=== PATIENT | female | born 1980 | race Caucasian/White ===

== ENCOUNTER 2016-10-08 10:13 | Emergency (ER) | payer BC ==
[~2016-10-08] VITALS: Ht 170.2 cm; Wt 109.1 kg
[~2016-10-08 10:13] MED LIST: ACIPHEX20 MG PO; ADDERALL XR 10M10 MG PO; AMETHIA1 TAB PO; ASPIR-LOW81 MG PO; ASTELIN; BIRTH CONTROL PILL; CELEXA40 MG PO; CIPRO 500MG TA500 MG PO; CONCERTA PO; CONCERTA27 MG; CONCERTA54 MG PO; DARVOCET N; DIOVAN40 MG PO; DUO-KAPS1 CAP PO; ELITE MAGNESIUM1 TAB PO; EPI-PEN1 MG/ML MR; FLONASE NASAL S16 GM NS; GLUCOPHAGE1000 MG PO; HYDROXYZINE HCL25 MG PO; KETOROLAC10 MG PO; LAMICTAL200 MG PO; LORTAB 5/500 501 TAB PO; METHOTREXA2.5 MG/TAB PO; MIDRIN 325 MG-11 CAP; MULTIPLE VITAMI1 CAP PO; NATURAL E400 IU PO; NIFEDIPINE ER30 MG PO; PERCOCET 325 MG1 TA2 PO; PERCOCET 5/321 UDTAB PO; PHENERGAN 25 TA25 MG; PHENERGAN 25 TA25 MG PO; PHENERGAN25 MG RC; PREDNISONE20 MG PO; PROTONIX 40MG T40 MG PO; ROBAXIN500 MG PO; SEASONIQUE1 TAB PO; SINGULAIR10 MG PO; TOPAMAX 25MG25 M1 PO; TOPAMAX50 MG PO; TOPROL XL 25MG25 MG PO; TOPROL XL50 MG PO; ZINC30 MG PO; ZOFRAN ODT8 MG PO; ZOFRAN4 M1 PO; ZOLOFT 100MG100 MG PO
[2016-10-08 10:16] VITALS: BP 130/100; PULSE 106; TEMP 98.2
[2016-10-08] MEDS ORDERED: FLEXERIL 1010 MG/TAB PO (10:39)
== END 2016-10-08 11:15 | disposition home or self-care (01) ==
LOC: COL.ER 10:13
DX: G43.909 Migraine, unspecified, not intractable, without status migrainosus (principal); M62.838 Other muscle spasm
CPT/HCPCS: J1100; J1200; J1885; J2360; J2765